=== PATIENT | female | born 1960 | race Caucasian/White ===

== ENCOUNTER 2018-09-08 16:10 | Emergency (ER) | payer OTHER ==
[~2018-09-08] VITALS: Ht 152.4 cm; Wt 109.8 kg
[2018-09-08 16:12] VITALS: Ht 152.4 cm; Wt 109.8 kg
[2018-09-08 17:36] LABS: BASOPHIL % 0.7 % (0-2); PLATELET COUNT 340 x10^3mcL (130-400); RED CELL DISTRIBUTION WIDTH 12.6 % (11.5-14.5)
[2018-09-08 17:51] LABS: BILIRUBIN TOTAL 0.3 mg/dL (0.20-1.00); CALCIUM 8.5 mg/dL (8.5-10.1); CARBON DIOXIDE 26.4 mmol/L (21-32); CREATININE SERUM 1.8 mg/dL (0.6-1.0); POTASSIUM SERUM 3.8 mmol/L (3.5-5.1); TOTAL PROTEIN, SERUM 7.4 g/dL (6.4-8.2)
[2018-09-08 17:53] LABS: ALBUMIN 3.2 g/dL (3.4-5.0)
[2018-09-08 17:54] LABS: microscopic required? YES; urine erythrocyte 1+ (NEGATIVE)
[2018-09-08 19:40] VITALS: BP 162/94
== END 2018-09-08 19:40 | disposition home or self-care (01) ==
LOC: ED 16:10
PROVIDERS: Emergency Medicine
DX: E11.319 Type 2 diabetes mellitus with unspecified diabetic retinopathy without macular edema (principal); I10 Essential (primary) hypertension; E78.00 Pure hypercholesterolemia, unspecified; F17.210 Nicotine dependence, cigarettes, uncomplicated; R11.0 Nausea; R35.0 Frequency of micturition; R63.1 Polydipsia
CPT/HCPCS: 82962; J1815; Q0092